=== PATIENT | female | born 1965 ===

== ENCOUNTER 2018-01-10 18:23 | Emergency (ER) | payer OTHER ==
[2018-01-10 18:35] VITALS: BMI 25.7
[2018-01-10 18:37] VITALS: TEMP 98.7
--- NOTE | 2018-01-10 20:24 | ED PDOC ---
Arrival/HPI - General Chief Complaint: Finger,Hand,&Wrist Time Seen by Provider: 01/10/18 19:04 Historian: Patient - History of Present Illness Narrative History of Present Illness (Text): 01/10/18 20:21 52yo female with no pmhx present with complaint of right thumb base pain x weeks. Notes that is usually with activity. 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 She denies trauma, paresthesia, focal weakness. Past Medical History - Provider Review Nursing Documentation Reviewed: Yes - Infectious Disease Hx of Infectious Diseases: None - Psychiatric Hx Substance Use: No - Surgical History Hx Section: Yes (1) Family/Social History - Physician Review Nursing Documentation Reviewed: Yes Family/Social History: Unknown Family HX Smoking Status: Never Smoked Hx Alcohol Use: No Hx Substance Use: No Allergies/Home Meds Allergies/Adverse Reactions: Allergies No Known Allergies Allergy (Verified 01/10/18 18:36) Review of Systems - Physician Review All systems were reviewed & negative as marked: Yes - Review of Systems Constitutional: Normal Eyes: Normal ENT: Normal Respiratory: Normal Cardiovascular: Normal Gastrointestinal: Normal Genitourinary Female: Normal Musculoskeletal: Arthralgias (right thumb pain) Skin: Normal Neurological: Normal Endocrine: Normal Hemo/Lymphatic: Normal Psychiatric: Normal Physical Exam Vital Signs Reviewed: Yes Vital Signs Temp Pulse Resp BP Pulse Ox 01/10/18 18:36 98.7 F 60 16 113/75 100 Temperature: Afebrile Blood Pressure: Normal Pulse: Regular Respiratory Rate: Normal Appearance: Positive for: Well-Appearing, Non-Toxic, Comfortable Pain Distress: None Mental Status: Positive for: Alert and Oriented X 3 - Systems Exam Head: Present: Atraumatic, Normocephalic Pupils: Present: PERRL Extroacular Muscles: Present: EOMI Conjunctiva: Present: Normal Mouth: Present: Moist Mucous Membranes Neck: Present: Normal Range of Motion Respiratory/Chest: Present: Clear to Auscultation, Good Air Exchange. No: Respiratory Distress, Accessory Muscle Use Cardiovascular: Present: Regular Rate and Rhythm, Normal S1, S2. No: Murmurs Abdomen: No: Tenderness, Distention, Peritoneal Signs Back: Present: Normal Inspection Upper Extremity: Present: Normal ROM, NORMAL PULSES, Tenderness (Mild tenderness over right thumb base), Neurovascularly Intact. No: Cyanosis, Edema , Swelling, Erythema, Temperature Abnormalties, Deformity Lower Extremity: Present: Normal Inspection. No: Edema Neurological: Present: GCS=15, CN II-XII Intact, Speech Normal Skin: Present: Warm, Dry, Normal Color. No: Rashes Psychiatric: Present: Alert, Oriented x 3, Normal Insight, Normal Concentration Medical Decision Making ED Course and Treatment: 01/10/18 21:22 Right hand xray - No acute fracture Wrist/thumb velcro brace applied. Result DW the pt Rx of Ibuprofen 600mg given Referred to her PMD - RAD Interpretation Radiology Orders: 01/10/18 19:05 HAND RIGHT THUMB [RAD] Stat - Medication Orders Current Medication Orders: Discontinued Medications Ibuprofen (Motrin Tab) 600 mg PO STAT STA Stop: 01/10/18 19:06 Last Admin: 01/10/18 20:20 Dose: 600 mg MAR Pain/Vitals Document 01/10/18 20:20 JOL (Rec: 01/10/18 20:20 JOL [facility]) Pain Reassessment Is This A Pain ReAssessment? No Sleep Is patient sleeping during reassessment? No Presence of Pain Presence of Pain Yes Pain Scale Used Pain Scale Used Numeric Location Pain Location Body Site Wrist Intensity 5 Scale Used Numeric Disposition/Present on Arrival - Present on Arrival Any Indicators Present on Arrival: No History of DVT/PE: No History of Uncontrolled Diabetes: No Urinary Catheter: No History of Decub. Ulcer: No History Surgical Site Infection Following: None - Disposition Have Diagnosis and Disposition been Completed?: Yes Diagnosis: Thumb pain Disposition: HOME/ ROUTINE Disposition Time: 20:25 Patient Plan: Discharge Patient Problems: Current Active Problems Problem Status Onset Thumb pain Acute Condition: STABLE Discharge Instructions (ExitCare): Muscle and Bone Pain (DC) Additional Instructions: Follow up with your doctor Return to ED for any new or worsening symptoms Prescriptions: Ibuprofen [Motrin Tab] 600 mg PO Q6 #15 tab Referrals: PCP,NO [Primary Care Provider] - [place] up with [place] [facility] [place] - Follow up with primary Forms: [employer] Connect (Thai), WORK NOTE
[2018-01-10 21:40] VITALS: BP 134/70; PULSE 87; RESP 18; O2SAT 99
--- NOTE | 2018-01-11 12:44 | RAD ---
PROCEDURE: Right Thumb radiographs. HISTORY: 1st metacarpal pain COMPARISON: None. TECHNIQUE: AP radiograph of the right hand, as well as spot oblique and lateral images of thumb were obtained. FINDINGS: RIGHT THUMB: Normal right thumb, without fracture or focal lesion. Remainder of the right hand (as seen on the AP view) grossly unremarkable. JOINTS: Normal. SOFT TISSUES: Normal. OTHER FINDINGS: None. IMPRESSION: Normal right thumb radiographs.
== END 2018-01-10 21:00 | disposition home or self-care (01) ==
LOC: ED 18:23
DX: M79.644 Pain in right finger(s) (principal)